=== PATIENT | male | born 1980 | race African-American/Black ===

== ENCOUNTER 2019-05-14 21:16 | Emergency (ER) | payer MEDICAID, SELFPAY ==
[2019-05-14 21:24] VITALS: BP 148/104; PULSE 100; RESP 16; TEMP 36.3; O2SAT 98
--- NOTE | 2019-05-14 21:29 | ED.GENADUL_ITS ---
Discharge Plan Disposition Patient Disposition: HOME Condition: Stable Discharge Details Chief Complaint: RespSymp Clinical Impression: Viral URI ED Provider: Zafar Arango Discharge Instructions Instructions: Upper Respiratory Infection (ED) Additional Instructions: follow up with your primary care provider in 1-2 weeks if you have high fevers, difficulty breathing or feel more ill return to the emergency Medical Decision Making 38 yo male who states he has hx of htn but doesn't take his meds comes in with complaint of I have a cold. He states he lives in [place] and was brought to the [facility] last night and was d/c'd this am and had no ride back so came here to be evaluated for his cold symptoms. HE denies fevers, chills, recent travel, rashes, vomit. He has clear rhinorrhea, clear lungs and is caox4 with no focal neuro deficits. Do not feel any labs or imaging indicated as I suspect he has viral uri. ADvised f/u with pcp with regards to his BP management and return precautions given Differential Diagnosis Differential Diagnosis: viral uri, sinusitis, rhinorrhea HPI General Mode of arrival: ambulatory . Date/Time Provider Initiated Documentation: 05/14/19 21:17 . Limitations to Documentation: no limitations . Information obtained by: patient . History of Present Illness 38 year old M presents to the emergency department with the chief complaint of runny nose, described as moderate, Patient started experiencing this hour(s) (1) and it has been constant. No relieving factors improve symptom(s), No exacerbating factors reported . Patient did receive the following treatments prior to arrival, none General Stated Complaint: RespSymp AILYN: 4 Review of Systems All systems reviewed & are unremarkable except as noted in HPI and below Constitutional Constitutional: Denies chills, Denies fever(s) and Denies weakness Cardiovascular Cardiovascular: Denies chest pain and Denies dyspnea Respiratory Respiratory: Denies cough and Denies dyspnea Gastrointestinal Gastrointestinal: Denies abdominal pain, Denies nausea and Denies vomiting Musculoskeletal Musculoskeletal: Denies joint swelling Neurologic Neurologic: Denies weakness PFSH Social History Smoking/Tobacco Use Status: Never Alcohol Intake: current Alcohol Intake frequency: 3 or more drinks per day Drug use: Daily Substance use type: marijuana Do you feel safe at home: Yes Do you feel safe in your relationship?: Yes Exam Const General: no acute distress Orientation: alert HENMT Head: normal to inspection Ears: external ears normal General nose exam: external nose normal Mouth: moist mucous membranes Eyes General: appearance normal, both eyes and all related structures Neck Neck: normal visual inspection Resp Effort & Inspection: normal respiratory effort and able to speak in complete sentences Cardio Rate: regular rate Skin General skin exam: no rashes or lesions noted Neuro General: alert and oriented x3 Extrem General: normal to inspection Psych Mental Status: mental status grossly normal Course Vital Signs Vital signs: Vital Signs Temperature 36.3 C L 05/14/19 21:24 Pulse 100 H 05/14/19 21:24 Respiratory Rate 16 05/14/19 21:24 Blood Pressure 148/104 H 05/14/19 21:24 Pulse Oximetry 98 05/14/19 21:24 Temperature 36.3 C L 05/14/19 21:24 Temperature Source Oral 05/14/19 21:24 Pulse 100 H 05/14/19 21:24 Respiratory Rate 16 05/14/19 21:24 Blood Pressure 148/104 H 05/14/19 21:24 Blood Pressure Position Supine 05/14/19 21:24 Pulse Oximetry 98 05/14/19 21:24 Oxygen Delivery Method Room Air 05/14/19 21:24 Oxygen Flow Rate 0 05/14/19 21:24 Pain Level 0 05/14/19 21:24
--- NOTE | 2019-05-14 21:37 | NUR.NOTE ---
Discharge instructions reviewed with verbal understanding. aware to f/u with pcp as needed. Pt asked for cab voucher to go home, call to case mgt. [facility], contacted for ride. to exit with steady gait.
== END 2019-05-14 21:35 | disposition home or self-care (01) ==
LOC: ER 21:36
PROVIDERS: Emergency Provider Emergency Medicine
DX: J06.9 Acute upper respiratory infection, unspecified (principal); I10 Essential (primary) hypertension; Z91.14 Patient's other noncompliance with medication regimen
CPT/HCPCS: 99281

== ENCOUNTER 2021-01-02 02:10 | Emergency (ER) | payer MEDICAID, SELFPAY ==
--- NOTE | 2021-01-02 02:26 | ED.GENADUL_ITS ---
Discharge Plan Disposition Patient Disposition: [facility] Condition: Stable Discharge Details Clinical Impression: ETOH abuse, Suicidal ideation, Homicidal ideation Primary Care Provider: Leyla,Local ED Provider: Dirk Atkins Discharge Instructions Additional Instructions: You are being discharged to the correctional facility while you are currently intoxicated. You have been medically cleared. You are to be placed under suicide watch until you have reached sobriety, then you will be reassessed by the mental health provider. If you notice any worsening of your symptoms, or any new symptoms such as vomiting, diarrhea, fever, chills, shortness of breath, chest pain, numbness, weakness, or fainting , please return immediately to the emergency department for reevaluation. Please follow up with your primary care provider as soon as possible for reassessment and reevaluation. As always, it was a pleasure participating in your medical care today. Medical Decision Making 40-year-old -[place] male with a past medical history of alcohol abuse presents today for medical clearance. Patient was picked up in [facility] for intoxication, he was screened by mental health and noted to be intoxicated. He was then brought up to the [facility], and then upon arrival there started saying that he wanted to kill himself and kill everyone else. He was then brought to [facility] ED for medical clearance. Patient arrives here actively cursing, yelling, screaming specifically at the police personnel that he is here with. He states that he wants to and kill myself and also I want to kill everyone of those pigs making specific references to the police officers at his bedside. He states that he does not want to kill me the provider specifically. He does admit to drinking alcohol. No other complaints at this time. Patient does not add any other historical components. Exam demonstrates an initially notably aggravated male, very upset at his current situation as well as the guest relations officer specifically. However he was calm for my exam, neurologic exam is unremarkable, heart and lung sounds normal. Patient appears medically stable, and shows no signs of acute life-threatening etiology medically. However he certainly does demonstrate evidence of mild intoxication. Breath alcohol per police was 147 that was obtained just prior to arrival. At this time the patient has been medically cleared and can be discharged back to the correctional facility. I did speak with mental health/Chandrakant, and discussed the case with her. She will follow up with the patient at the facility for mental health assessment once he is sober. I did discuss the patient's need for suicide watch at the facility. This was also conveyed in the discharge instructions and with the police officers. I have extensively reviewed the treatment plan and discharge instructions with the patient. I have addressed all patient concerns at this time. The patient was made aware of what symptoms to monitor for that would warrant a return to the emergency department. Discussed the plan with the patient, they demonstrate verbal understanding and agreement with our assessment and plan at this time. The documentation in this chart was dictated using [employer] dictation software. Please excuse any dictation errors. HPI General Date/Time Provider Initiated Documentation: 01/02/21 02:18 . HPI Narrative: 40-year-old -Erit[place] male with a past medical history of alcohol abuse presents today for medical clearance. Patient was picked up in [facility] for intoxication, he was screened by mental health and noted to be intoxicated. [facility] was then [facility], and then upon arrival there started saying that he wanted to kill himself and kill everyone else. He was then brought to [facility] ED for medical clearance. Patient arrives here actively cursing, yelling, screaming specifically at the police personnel that he is here with. He states that he wants to and kill myself and also I want to kill everyone of those pigs making specific references to the police officers at his bedside. He states that he does not want to kill me the provider specifically. He does admit to drinking alcohol. No other complaints at this time. Patient does not add any other historical components. General AILYN: 4 Review of Systems All systems reviewed & are unremarkable except as noted in HPI and below [facility] Social History Smoking/Tobacco Use Status: Never Smoking risk assessment performed?: Yes Alcohol Intake: current Alcohol Intake frequency: 3 or more drinks per day Drug use: Daily Substance use type: marijuana Do you feel safe at home: Yes Do you feel safe in your relationship?: Yes Exam Narrative Exam Narrative: 1.Const: Well-nourished, Well-developed, appearing stated age 2.Eyes: PERRL, no conjunctival injection, and symmetrical lids. 3.ENT: Atraumatic external nose and ears. Moist MM. Neck: Symmetric, trachea midline, No thyromegaly. 4.CVS: +S1/S2, No murmurs or gallops. Peripheral pulses 2+ and equal in all extremities. Brisk capillary refill in all extremities. 5.RESP: Unlabored respiratory effort. Clear to auscultation bilaterally. No wheezes rales or rhonchi 6.GI: Soft, Nontender/Nondistended, No hepatosplenomegaly. No guarding or rebound. 7.MSK: Normocephalic/Atraumatic, Extremities w/o deformity or ttp No cyanosis or clubbing, Normal movement of all extremities 8.Skin: Warm, Dry. No rashes or lesions. 9.Neuro: television announcer II-XII grossly intact. Sensation grossly intact, no focal neurologic deficits. 10.Psych: Slightly intoxicated, notably angry and upset. No evidence of significantly altered sensorium.
[2021-01-02 02:33] VITALS: PULSE 90; RESP 20
== END 2021-01-02 02:29 | disposition home or self-care (01) ==
LOC: ER 02:36
PROVIDERS: Emergency Provider Student in an Organized Health Care Education/Training Program
DX: F10.129 Alcohol abuse with intoxication, unspecified (principal); R45.851 Suicidal ideations; R45.850 Homicidal ideations
CPT/HCPCS: 99285; 99283